=== PATIENT | female | born 1965 | race Two or more races ===

== ENCOUNTER 2020-11-14 12:45 | Inpatient (IN) | payer OTHER ==
[~2020-11-14] VITALS: Ht 165.1 cm; Wt 112.0 kg
[2020-11-14] MEDS ORDERED: TOPROL XL25 M1 PO (16:34)
[2020-11-14] MEDS ORDERED: COZAAR50 MG PO (16:34)
[2020-11-14] MEDS ORDERED: ATIVAN0.5 M1 PO (16:34)
[2020-11-14] MEDS ORDERED: XARELTO20 M1 PO (16:35)
[2020-11-14] MEDS ORDERED: LIPITOR40 M1 PO (16:35)
== END 2020-11-17 13:24 | disposition home or self-care (01) | DRG 743 ==
LOC: OB/GYN 11-15 09:18 → O/R 11-15 09:18 → OB/GYN 11-15 12:45
PROVIDERS: ADMIT Specialist; ATTEND Specialist
PROC: 0UT20ZZ Resection of Bilateral Ovaries, Open Approach (ICD-10-PCS; 2020-11-15)
PROC: 0UT70ZZ Resection of Bilateral Fallopian Tubes, Open Approach (ICD-10-PCS; 2020-11-15)
PROC: 0UT90ZZ Resection of Uterus, Open Approach (ICD-10-PCS; principal; 2020-11-15 15:45)
DX: D25.1 Intramural leiomyoma of uterus (principal); D25.2 Subserosal leiomyoma of uterus; N83.292 Other ovarian cyst, left side; N83.291 Other ovarian cyst, right side; N85.8 Other specified noninflammatory disorders of uterus; I10 Essential (primary) hypertension; E78.5 Hyperlipidemia, unspecified; N95.0 Postmenopausal bleeding